=== PATIENT | male | born 1935 | race Hispanic/Latino ===

== ENCOUNTER → 2020-11-02 | Outpatient (CLI) | payer OTHER, MEDICARE | END | disposition home or self-care (01) | LOC: RAH 13:19 | PROVIDERS: ATTEND Internal Medicine | DX: G31.89 Other specified degenerative diseases of nervous system (principal) | CPT/HCPCS: 70551 ==

== ENCOUNTER 2022-01-02 20:28 | Emergency (ER) | payer OTHER, MEDICARE ==
[~2022-01-02] VITALS: Ht 177.8 cm; Wt 79.4 kg
[~2022-01-02 20:28] MED LIST: APIX2.5T PO; ASPI-1005 PO; BUME2TAB5 PO; CYAN250014 PO; METO-391 PO; SPIR25TA6 PO; TAMS-1 PO
[2022-01-02 21:06] LABS: BASOPHILS % (AUTO) 0.6 % (0.0-5.0); EOSINOPHILS % (AUTO) 4.3 % (0.0-8.0); LYMPHOCYTES % (AUTO) 27.8 % (21.0-51.0); MEAN CORPUSCULAR HEMOGLOBIN 31.7 pg (27.0-33.0); MEAN CORPUSCULAR HGB CONC 33.9 g/dL (32.0-36.0); MEAN CORPUSCULAR VOLUME 93.7 fL (79-99); MONOCYTES % (AUTO) 12.1 % (3.0-13.0); NEUTROPHILS % (AUTO) 54.7 % (40.0-77.0); PLATELET COUNT (AUTO) 196 K/uL (130-400); RED BLOOD CELL COUNT(AUTO) 3.31 MIL/uL (4.50-6.20); RED CELL DISTRIBUTION WIDTH 14.2 % (11.0-15.5); WHITE BLOOD COUNT (AUTO) 6.5 K/uL (4.8-10.8)
[2022-01-02 21:15] LABS: CREATININE 1.4 mg/dL (0.5-1.5); INR 1.25 (0.85-1.15); POTASSIUM 3.6 mmol/L (3.5-5.1); PROTHROMBIN TIME 13.5 SEC (9.6-11.6)
[2022-01-02 21:17] LABS: PARTIAL THROMBOPLASTIN TIME 40.7 SEC (26.3-35.5)
[2022-01-02 21:23] LABS: ALBUMIN 3.4 g/dL (3.5-5.0); TOTAL PROTEIN, SERUM 7.5 g/dL (6.0-8.3)
[2022-01-02] MEDS ORDERED: 0.9% NACL 500ML IV.SOLN 500 ML IV ONE (23:30)
[2022-01-03 00:57] VITALS: BP 100/61
== END 2022-01-03 00:58 | disposition home or self-care (01) ==
LOC: EDH 20:28
DX: I48.20 Chronic atrial fibrillation, unspecified (principal); I50.9 Heart failure, unspecified; Z79.899 Other long term (current) drug therapy; Z79.82 Long term (current) use of aspirin; Z79.01 Long term (current) use of anticoagulants
CPT/HCPCS: 99285; 96360; 71045; 84484 ×2; 80053; 83880; 85025; 85610; 85730; 36415; 93005; J7040

== ENCOUNTER 2022-01-06 15:11 | Inpatient (IN) | payer OTHER, MEDICARE ==
[~2022-01-06] VITALS: Ht 182.9 cm; Wt 69.6 kg
[2022-01-06] VITALS (7 sets, daily range): BP systolic 92–110; BP diastolic 47–66
[2022-01-06] MEDS ORDERED: DILTIAZEM 25MG INJ IVP ONE ×2 (15:33→16:00)
[2022-01-06 15:37] LABS: BASOPHILS % (AUTO) 0.5 % (0.0-5.0); EOSINOPHILS % (AUTO) 0.4 % (0.0-8.0); HEMATOCRIT 33.7 % (42-54); LYMPHOCYTES % (AUTO) 18.9 % (21.0-51.0); MEAN CORPUSCULAR HEMOGLOBIN 31.2 pg (27.0-33.0); MEAN CORPUSCULAR HGB CONC 33.2 g/dL (32.0-36.0); MEAN CORPUSCULAR VOLUME 93.9 fL (79-99); NEUTROPHILS % (AUTO) 65.9 % (40.0-77.0); PLATELET COUNT (AUTO) 191 K/uL (130-400); RED BLOOD CELL COUNT(AUTO) 3.59 MIL/uL (4.50-6.20); RED CELL DISTRIBUTION WIDTH 14.5 % (11.0-15.5); WHITE BLOOD COUNT (AUTO) 7.7 K/uL (4.8-10.8)
[2022-01-06] MEDS ORDERED: DILTIAZEM 125 MG/25 ML INJ IV ONE (15:37)
[2022-01-06 15:48] LABS: CREATININE 2.5 mg/dL (0.5-1.5); POTASSIUM 4.1 mmol/L (3.5-5.1)
[2022-01-06 15:57] LABS: ALBUMIN 3.6 g/dL (3.5-5.0); TOTAL PROTEIN, SERUM 7.7 g/dL (6.0-8.3)
[2022-01-06] MEDS ORDERED: NICARDIPINE 25MG INJ 25 MG in 0.9% NACL 250ML 240 ML IV SCH (16:00)
[2022-01-06] MEDS ORDERED: ACETAMINOPHEN 325 MG TAB PO PRN (16:30)
[2022-01-06] MEDS ORDERED: METO-408 PO (17:43)
[2022-01-06] MEDS: ONDANSETRON 4MG INJ IVP PRN (18:01)
[2022-01-06] MEDS: METOPROLOL TARTRATE 25 MG TAB PO SCH (21:00)
[2022-01-07] VITALS (13 sets, daily range): BP systolic 83–121; BP diastolic 48–75
[2022-01-07] MEDS: METOPROLOL TARTRATE 25 MG TAB PO SCH ×2 (03:13→08:18)
[2022-01-07] MEDS: ONDANSETRON 4MG INJ IVP PRN (09:55)
[2022-01-07] MEDS: METOPROLOL SUCCINATE 25 MG TAB.SR.24H PO SCH (10:17)
[2022-01-07] MEDS: FUROSEMIDE 20MG VIAL IV SCH ×2 (10:55→21:28)
[2022-01-08] VITALS (7 sets, daily range): BP systolic 102–123; BP diastolic 49–72
[2022-01-08] MEDS: FUROSEMIDE 20MG VIAL IV SCH ×2 (09:46→21:22)
[2022-01-08] MEDS: ASPIRIN 81MG CHEW TAB PO SCH (09:46)
[2022-01-08] MEDS: METOPROLOL SUCCINATE 25 MG TAB.SR.24H PO SCH (09:46)
[2022-01-08] MEDS: ENOXAPARIN SODIUM 30 MG/0.3 ML SQ SCH (09:47)
[2022-01-08 10:54] LABS: MAGNESIUM 2.1 mg/dL (1.80-2.40); POTASSIUM 3.4 mmol/L (3.5-5.1)
[2022-01-08] MEDS ORDERED: POTASSIUM CHLORIDE 20MEQ/100ML 100 ML IV PRN (12:00)
[2022-01-08] MEDS ORDERED: POTASSIUM CHLORIDE 10% ELIXIR 20 MEQ/15 ML UDCUP PO PRN (12:00)
[2022-01-08] MEDS ORDERED: LIDOCAINE HCL-MPF 1% 2ML VIAL IV PRN (12:00)
[2022-01-08] MEDS: KCL 20 MEQ ERTAB PO PRN ×2 (12:31→14:41)
[2022-01-09 03:44] VITALS: BP 114/62
[2022-01-09 04:08] LABS: HEMATOCRIT 29.1 % (42-54); MEAN CORPUSCULAR HEMOGLOBIN 31.5 pg (27.0-33.0); MEAN CORPUSCULAR HGB CONC 32.6 g/dL (32.0-36.0); MEAN CORPUSCULAR VOLUME 96.4 fL (79-99); RED BLOOD CELL COUNT(AUTO) 3.02 MIL/uL (4.50-6.20); RED CELL DISTRIBUTION WIDTH 14.7 % (11.0-15.5); WHITE BLOOD COUNT (AUTO) 5.4 K/uL (4.8-10.8)
[2022-01-09 05:15] LABS: CREATININE 1.5 mg/dL (0.5-1.5); POTASSIUM 3.3 mmol/L (3.5-5.1); TOTAL PROTEIN, SERUM 6.7 g/dL (6.0-8.3)
[2022-01-09] MEDS: KCL 20 MEQ ERTAB PO PRN ×3 (06:07→10:50)
[2022-01-09] MEDS: METOPROLOL SUCCINATE 25 MG TAB.SR.24H PO SCH (08:02)
[2022-01-09] MEDS: ENOXAPARIN SODIUM 30 MG/0.3 ML SQ SCH (08:03)
[2022-01-09] MEDS: ASPIRIN 81MG CHEW TAB PO SCH (08:03)
[2022-01-09 08:22] VITALS: BP 118/64
[2022-01-09] MEDS: APIXABAN 2.5 MG TABLET PO SCH ×2 (10:48→20:47)
[2022-01-09] MEDS: FUROSEMIDE 40MG VIAL IV SCH ×2 (10:48→21:54)
[2022-01-09 11:46] VITALS: BP 113/71
[2022-01-09 16:07] VITALS: BP 116/66
[2022-01-09 19:06] VITALS: BP 113/69
[2022-01-09 23:37] VITALS: BP 120/66
[2022-01-10 03:30] VITALS: BP 107/58
[2022-01-10 08:00] VITALS: BP 112/65
[2022-01-10 08:25] LABS: MEAN CORPUSCULAR HEMOGLOBIN 31.3 pg (27.0-33.0); MEAN CORPUSCULAR HGB CONC 32.6 g/dL (32.0-36.0); MEAN CORPUSCULAR VOLUME 95.8 fL (79-99); RED BLOOD CELL COUNT(AUTO) 3.55 MIL/uL (4.50-6.20); RED CELL DISTRIBUTION WIDTH 14.6 % (11.0-15.5); WHITE BLOOD COUNT (AUTO) 4.8 K/uL (4.8-10.8)
[2022-01-10 08:37] LABS: CREATININE 1.3 mg/dL (0.5-1.5); POTASSIUM 3.7 mmol/L (3.5-5.1)
[2022-01-10] MEDS: ASPIRIN 81MG CHEW TAB PO SCH (08:41)
[2022-01-10] MEDS: APIXABAN 2.5 MG TABLET PO SCH ×2 (08:41→20:28)
[2022-01-10] MEDS: METOPROLOL SUCCINATE 25 MG TAB.SR.24H PO SCH (08:41)
[2022-01-10] MEDS: ENOXAPARIN SODIUM 30 MG/0.3 ML SQ SCH (08:43)
[2022-01-10] MEDS ORDERED: REGADENOSON 0.4 MG/5 ML PF SYG IVP SCH (10:00)
[2022-01-10] MEDS: FUROSEMIDE 40MG VIAL IV SCH ×2 (10:30→21:59)
[2022-01-10 12:00] VITALS: BP 119/67
[2022-01-10 16:00] VITALS: BP 112/59
[2022-01-10 16:38] VITALS: BP 112/59
[2022-01-10 20:00] VITALS: BP 134/70
[2022-01-11 00:32] VITALS: BP 116/68
[2022-01-11 04:53] VITALS: BP 117/66
[2022-01-11 08:00] VITALS: BP 126/74
[2022-01-11] MEDS: APIXABAN 2.5 MG TABLET PO SCH (08:49)
[2022-01-11] MEDS: METOPROLOL SUCCINATE 25 MG TAB.SR.24H PO SCH (08:50)
[2022-01-11] MEDS: ASPIRIN 81MG CHEW TAB PO SCH (08:50)
[2022-01-11] MEDS: ENOXAPARIN SODIUM 30 MG/0.3 ML SQ SCH (08:51)
[2022-01-11] MEDS ORDERED: LISINOPRIL 5 MG TABLET PO SCH (09:00)
[2022-01-11] MEDS ORDERED: BUMETANIDE 1 MG TAB PO SCH (09:00)
[2022-01-11] MEDS ORDERED: SPIRONOLACTONE 25 MG TAB PO SCH (09:00)
[2022-01-11] MEDS: FUROSEMIDE 40MG VIAL IV SCH (09:02)
[2022-01-11 12:00] VITALS: BP 132/78
[2022-01-11 16:00] VITALS: BP 122/69
[2022-01-18] MEDS ORDERED: 0.9%NACL 1000ML 1,000 ML IV SCH (11:00)
== END 2022-01-11 16:38 | disposition home or self-care (01) | DRG 291 ==
LOC: EDH 15:11 → EDHIP 16:28 → 2BH 17:07 → 2AH 01-07 06:01
PROVIDERS: ADMIT Internal Medicine Infectious Disease; ATTEND Internal Medicine Infectious Disease
DX: I11.0 Hypertensive heart disease with heart failure (principal); I50.23 Acute on chronic systolic (congestive) heart failure; J96.91 Respiratory failure, unspecified with hypoxia; I16.1 Hypertensive emergency; N17.9 Acute kidney failure, unspecified; E87.3 Alkalosis; J44.1 Chronic obstructive pulmonary disease with (acute) exacerbation; I48.91 Unspecified atrial fibrillation; E87.6 Hypokalemia; E78.5 Hyperlipidemia, unspecified; I25.10 Atherosclerotic heart disease of native coronary artery without angina pectoris; N40.0 Benign prostatic hyperplasia without lower urinary tract symptoms
CPT/HCPCS: 36415; 78452; 80048; 80053; 82550; 82948; 83735; 83874; 83880; 84484; 85025; 85027; 93005; 93017; 93306; 96374; A9500; G0378; J1650; J1940; J2405; J2785; J3490; J7050

== ENCOUNTER 2022-01-17 20:50 | Inpatient (IN) | payer OTHER, MEDICARE ==
[~2022-01-17] VITALS: Ht 182.9 cm; Wt 69.2 kg
[2022-01-17 21:20] LABS: BASOPHILS % (AUTO) 0.5 % (0.0-5.0); EOSINOPHILS % (AUTO) 0.5 % (0.0-8.0); HEMATOCRIT 37.8 % (42-54); LYMPHOCYTES % (AUTO) 24.9 % (21.0-51.0); MEAN CORPUSCULAR HEMOGLOBIN 31.1 pg (27.0-33.0); MEAN CORPUSCULAR HGB CONC 33.1 g/dL (32.0-36.0); MONOCYTES % (AUTO) 12.3 % (3.0-13.0); NEUTROPHILS % (AUTO) 61.5 % (40.0-77.0); PLATELET COUNT (AUTO) 139 K/uL (130-400); RED BLOOD CELL COUNT(AUTO) 4.02 MIL/uL (4.50-6.20); RED CELL DISTRIBUTION WIDTH 14.2 % (11.0-15.5); WHITE BLOOD COUNT (AUTO) 6.2 K/uL (4.8-10.8)
[2022-01-17] MEDS ORDERED: METOPROLOL TARTRATE 1 MG/ML 5ML VIAL IV ONE (21:30)
[2022-01-17] MEDS ORDERED: 0.9%NACL 1000ML 1,000 ML IV ONE (21:30)
[2022-01-17 21:35] LABS: CREATININE 1.9 mg/dL (0.5-1.5); POTASSIUM 3.8 mmol/L (3.5-5.1)
[2022-01-17 21:43] LABS: ALBUMIN 3.8 g/dL (3.5-5.0); MAGNESIUM 1.9 mg/dL (1.80-2.40); TOTAL PROTEIN, SERUM 8.3 g/dL (6.0-8.3)
[2022-01-17 21:54] LABS: B-TYPE NATRIURETIC PEPTIDE 1720 pg/mL (0-100)
[2022-01-17 21:59] LABS: INR 1.44 (0.85-1.15); PROTHROMBIN TIME 15.4 SEC (9.6-11.6)
[2022-01-17 22:00] LABS: PARTIAL THROMBOPLASTIN TIME 40.7 SEC (26.3-35.5)
[2022-01-17] MEDS ORDERED: AMIODARONE 150MG VIAL ONE (22:29)
[2022-01-17] MEDS ORDERED: AMIODARONE 900MG VIAL 360 MG in DEXTROSE 5%-WATER 200 ML IV SCH (22:30)
[2022-01-17] MEDS ORDERED: ACETAMINOPHEN 325 MG TAB PO PRN (22:30)
[2022-01-17] MEDS ORDERED: AMIODARONE 150MG VIAL 150 MG in DEXTROSE 5%-WATER 100 ML IV SCH (22:30)
[2022-01-18] VITALS (36 sets, daily range): BP systolic 93–144; BP diastolic 39–78
[2022-01-18] MEDS ORDERED: NOREPINEPHRIN 4MG/NS 250ML 250 ML IV ONE (00:37)
[2022-01-18] MEDS ORDERED: NOREPINEPHRIN 4MG/NS 250ML 250 ML IV SCH (01:00)
[2022-01-18] MEDS ORDERED: METO-408 PO (03:39)
[2022-01-18] MEDS ORDERED: AMIODARONE 900MG VIAL 540 MG in DEXTROSE 5%-WATER 300 ML IV SCH ×2 (04:30→23:00)
[2022-01-18] MEDS: INSULIN HUMULIN R 100 UNIT/ML 3ML SQ SCH ×4 (06:39→19:54)
[2022-01-18] MEDS: ONDANSETRON 4MG INJ IVP PRN ×2 (10:08→18:28)
[2022-01-18] MEDS ORDERED: ASPIRIN 81MG CHEW TAB PO SCH (10:36)
[2022-01-18] MEDS ORDERED: CYANOCOBALAMIN (VITAMIN B-12) 1,000 MCG TABLET PO SCH (10:42)
[2022-01-18] MEDS ORDERED: ENOXAPARIN SODIUM 80 MG/0.8 ML SQ SCH (10:51)
[2022-01-18] MEDS ORDERED: ONDANSETRON 4MG INJ IVP PRN (11:30)
[2022-01-18] MEDS ORDERED: IPRATROPIUM/ALBUTEROL SULFATE 3 ML SOLUTION IH ONE (11:38)
[2022-01-18] MEDS: IPRATROPIUM 0.5 MG/2.5 ML INH IH SCH ×3 (11:44→23:29)
[2022-01-18] MEDS: 0.9%NACL 1000ML 1,000 ML IV SCH (12:00)
[2022-01-18 12:16] LABS: APPEARANCE,URINE CLEAR (CLEAR); BILIRUBIN,URINE MODERATE mg/dL (NEGATIVE); COLOR,URINE YELLOW (YELLOW); GLUCOSE, URINE (UA) NEGATIVE (NEGATIVE); KETONES,URINE 5 mg/dL (NEGATIVE); LEUKOCYTE ESTERASE ,URINE NEGATIVE Leu/uL (NEGATIVE); NITRATE,URINE NEGATIVE (NEGATIVE); OCCULT BLOOD,URINE NEGATIVE (NEGATIVE); PROTEIN,URINE 30 mg/dL (NEGATIVE)
[2022-01-18 12:30] LABS: BACTERIA,URINE Moderate /HPF (None Seen); RBC,URINE 0-1 /HPF (0-1); SQUAMOUS EPITHELIAL CELL,UR 0-2 /HPF (0-2)
[2022-01-18 12:31] LABS: WBC,URINE None Seen /HPF (0-1)
[2022-01-18] MEDS: TAMSULOSIN HCL 0.4 MG CAP.ER.24H PO SCH (20:15)
[2022-01-18] MEDS ORDERED: METOCLOPRAMIDE 10 MG/2 ML VIAL IVP PRN (20:30)
[2022-01-19] VITALS (37 sets, daily range): BP systolic 97–133; BP diastolic 42–73
[2022-01-19] MEDS: INSULIN HUMULIN R 100 UNIT/ML 3ML SQ SCH ×4 (06:23→20:24)
[2022-01-19] MEDS: IPRATROPIUM 0.5 MG/2.5 ML INH IH SCH ×4 (06:24→23:55)
[2022-01-19] MEDS: 0.9%NACL 1000ML 1,000 ML IV SCH (06:26)
[2022-01-19 08:14] LABS: HEMATOCRIT 34.8 % (42-54); MEAN CORPUSCULAR HGB CONC 32.5 g/dL (32.0-36.0); MEAN CORPUSCULAR VOLUME 95.3 fL (79-99); PLATELET COUNT (AUTO) 115 K/uL (130-400); RED BLOOD CELL COUNT(AUTO) 3.65 MIL/uL (4.50-6.20); RED CELL DISTRIBUTION WIDTH 14.4 % (11.0-15.5); WHITE BLOOD COUNT (AUTO) 7.6 K/uL (4.8-10.8)
[2022-01-19] MEDS: FUROSEMIDE 20MG VIAL IV SCH ×2 (08:42→20:23)
[2022-01-19] MEDS: CARVEDILOL 3.125 MG TABLET PO SCH ×2 (08:42→20:13)
[2022-01-19] MEDS: AMIODARONE 200 MG TABLET PO SCH ×2 (08:42→20:12)
[2022-01-19] MEDS: APIXABAN 2.5 MG TABLET PO SCH ×2 (08:42→20:13)
[2022-01-19] MEDS: FAMOTIDINE 20MG TAB PO SCH (08:43)
[2022-01-19 09:01] LABS: CREATININE 2.3 mg/dL (0.5-1.5); MAGNESIUM 1.9 mg/dL (1.80-2.40); POTASSIUM 4.2 mmol/L (3.5-5.1)
[2022-01-19] MEDS ORDERED: MAGNESIUM 2GM PREMIX 50ML 50 ML IV PRN (09:30)
[2022-01-19 09:57] LABS: LYMPHOCYTES % (MANUAL) 16 % (22-44); MONOCYTES % (MANUAL) 6 % (2-9); SEGMENTED NEUTROPHILS % 78 % (40-70)
[2022-01-19 09:58] LABS: MAN.DIFF COMMENT-IMPRESSION MANUAL DIFFERENTIAL; PLATELET MORPHOLOGY COMMENT SLIGHTLY DECREASED
[2022-01-19] MEDS: TAMSULOSIN HCL 0.4 MG CAP.ER.24H PO SCH (20:12)
[2022-01-20] VITALS (17 sets, daily range): BP systolic 100–113; BP diastolic 37–70
[2022-01-20] MEDS: 0.9%NACL 1000ML 1,000 ML IV SCH (03:42)
[2022-01-20 03:56] LABS: CREATININE 1.9 mg/dL (0.5-1.5); POTASSIUM 3.5 mmol/L (3.5-5.1)
[2022-01-20] MEDS: IPRATROPIUM 0.5 MG/2.5 ML INH IH SCH ×4 (06:25→23:25)
[2022-01-20] MEDS: INSULIN HUMULIN R 100 UNIT/ML 3ML SQ SCH ×4 (06:50→21:00)
[2022-01-20] MEDS ORDERED: KCL 20 MEQ ERTAB PO SCH (08:42)
[2022-01-20] MEDS: APIXABAN 2.5 MG TABLET PO SCH ×2 (08:59→21:33)
[2022-01-20] MEDS: AMIODARONE 200 MG TABLET PO SCH ×2 (08:59→21:33)
[2022-01-20] MEDS: FUROSEMIDE 20 MG TABLET PO SCH ×2 (09:00→16:55)
[2022-01-20] MEDS: CARVEDILOL 3.125 MG TABLET PO SCH ×2 (09:00→21:32)
[2022-01-20] MEDS: FAMOTIDINE 20MG TAB PO SCH (09:00)
[2022-01-20] MEDS: TAMSULOSIN HCL 0.4 MG CAP.ER.24H PO SCH (21:33)
[2022-01-21 03:45] LABS: CREATININE 1.4 mg/dL (0.5-1.5); POTASSIUM 3.3 mmol/L (3.5-5.1)
[2022-01-21 04:19] VITALS: BP 110/64
[2022-01-21] MEDS ORDERED: POTASSIUM CHLORIDE 10% ELIXIR 20 MEQ/15 ML UDCUP PO ONE (06:00)
[2022-01-21] MEDS: INSULIN HUMULIN R 100 UNIT/ML 3ML SQ SCH ×4 (06:22→19:58)
[2022-01-21] MEDS: IPRATROPIUM 0.5 MG/2.5 ML INH IH SCH ×4 (06:35→23:27)
[2022-01-21 07:30] VITALS: BP 104/65
[2022-01-21] MEDS: APIXABAN 2.5 MG TABLET PO SCH ×2 (08:40→20:33)
[2022-01-21] MEDS: AMIODARONE 200 MG TABLET PO SCH ×2 (08:40→20:32)
[2022-01-21] MEDS: FUROSEMIDE 20 MG TABLET PO SCH ×2 (08:40→17:27)
[2022-01-21] MEDS: FAMOTIDINE 20MG TAB PO SCH (08:40)
[2022-01-21] MEDS: CARVEDILOL 3.125 MG TABLET PO SCH ×2 (08:41→20:32)
[2022-01-21] MEDS ORDERED: KCL 20 MEQ ERTAB PO SCH (09:00)
[2022-01-21 11:29] VITALS: BP 106/71
[2022-01-21 16:22] VITALS: BP 95/67
[2022-01-21 20:00] VITALS: BP 107/66
[2022-01-21] MEDS: TAMSULOSIN HCL 0.4 MG CAP.ER.24H PO SCH (20:32)
[2022-01-22] VITALS: BP 130/77
[2022-01-22 04:00] VITALS: BP 107/61
[2022-01-22 04:48] LABS: HEMATOCRIT 31.8 % (42-54); MEAN CORPUSCULAR HEMOGLOBIN 31.4 pg (27.0-33.0); MEAN CORPUSCULAR HGB CONC 32.7 g/dL (32.0-36.0); MEAN CORPUSCULAR VOLUME 96.1 fL (79-99); RED BLOOD CELL COUNT(AUTO) 3.31 MIL/uL (4.50-6.20); RED CELL DISTRIBUTION WIDTH 14.3 % (11.0-15.5); WHITE BLOOD COUNT (AUTO) 4.8 K/uL (4.8-10.8)
[2022-01-22 04:54] LABS: CREATININE 1.3 mg/dL (0.5-1.5); POTASSIUM 3.7 mmol/L (3.5-5.1)
[2022-01-22] MEDS: INSULIN HUMULIN R 100 UNIT/ML 3ML SQ SCH ×2 (05:06→11:30)
[2022-01-22] MEDS: IPRATROPIUM 0.5 MG/2.5 ML INH IH SCH ×2 (06:24→10:58)
[2022-01-22 08:07] VITALS: BP 105/66
[2022-01-22] MEDS ORDERED: KCL 20 MEQ ERTAB PO SCH (09:00)
[2022-01-22] MEDS ORDERED: FUROSEMIDE 20MG VIAL IV SCH (09:00)
[2022-01-22] MEDS: AMIODARONE 200 MG TABLET PO SCH (10:28)
[2022-01-22] MEDS: CARVEDILOL 3.125 MG TABLET PO SCH (10:28)
[2022-01-22] MEDS: FAMOTIDINE 20MG TAB PO SCH (10:28)
[2022-01-22] MEDS: APIXABAN 2.5 MG TABLET PO SCH (10:29)
[2022-01-22 12:09] VITALS: BP 101/74
[2022-01-22] MEDS ORDERED: FURO20TA6 PO (14:50)
[2022-01-22] MEDS ORDERED: AMIO200T68 PO (14:50)
[2022-01-22] MEDS ORDERED: CARV3.1262 PO (14:52)
== END 2022-01-22 15:05 | disposition home or self-care (01) | DRG 291 ==
LOC: EDH 20:50 → EDHIP 22:18 → 2BH 01-18 02:50 → 2AH 01-20 13:00
PROVIDERS: ADMIT Internal Medicine Infectious Disease; ATTEND Internal Medicine Infectious Disease
DX: I13.0 Hypertensive heart and chronic kidney disease with heart failure and stage 1 through stage 4 chronic kidney disease, or unspecified chronic kidney disease (principal); I50.23 Acute on chronic systolic (congestive) heart failure; I48.19 Other persistent atrial fibrillation; N17.9 Acute kidney failure, unspecified; D68.9 Coagulation defect, unspecified; N18.30 Chronic kidney disease, stage 3 unspecified; I25.10 Atherosclerotic heart disease of native coronary artery without angina pectoris; J44.9 Chronic obstructive pulmonary disease, unspecified; D64.9 Anemia, unspecified; I34.0 Nonrheumatic mitral (valve) insufficiency; I95.9 Hypotension, unspecified; E87.6 Hypokalemia; N40.0 Benign prostatic hyperplasia without lower urinary tract symptoms; I42.0 Dilated cardiomyopathy; E78.5 Hyperlipidemia, unspecified; E86.0 Dehydration; F17.210 Nicotine dependence, cigarettes, uncomplicated; Z79.01 Long term (current) use of anticoagulants; Z79.899 Other long term (current) drug therapy; Z79.82 Long term (current) use of aspirin
CPT/HCPCS: 36415; 71045; 74176; 80048; 80053; 81001; 82550; 82948; 83735; 83874; 83880; 84484; 85025; 85027; 85610; 85730; 87040; 87088; 92610; 93005; 94640; 94664; 97039; 99291; G0378; J0282; J1650; J1940; J2405; J2765; J3475; J3490; J7030; J7060

== ENCOUNTER → 2022-03-13 | Outpatient (CLI) | payer OTHER, MEDICARE ==
[~2022-03-13] MED LIST changes: -APIX2.5T PO; -ASPI-1005 PO; +ASPI-1012 PO; +BUME1TAB7 PO; -BUME2TAB5 PO; -METO-391 PO; -SPIR25TA6 PO
== END | disposition home or self-care (01) ==
LOC: RAH 09:08
PROVIDERS: ATTEND Internal Medicine Gastroenterology
DX: K21.9 Gastro-esophageal reflux disease without esophagitis (principal)
CPT/HCPCS: 74240

== ENCOUNTER → 2022-03-26 | Outpatient (CLI) | payer OTHER, MEDICARE | END | disposition home or self-care (01) | LOC: RAH 10:21 | PROVIDERS: ATTEND Internal Medicine Gastroenterology | DX: R68.81 Early satiety (principal); R11.0 Nausea; R63.4 Abnormal weight loss | CPT/HCPCS: 78264; A9541 ==